=== PATIENT | male | born 1995 | race Caucasian/White ===

== ENCOUNTER 2017-05-24 14:51 | Emergency (ER) | payer OTHER ==
[2017-05-24 14:57] VITALS: BP 152/82; PULSE 83; RESP 18; TEMP 98.2; O2SAT 98
[2017-05-24] MEDS ORDERED: TDAP ADULT 0.5 ML INJ (BOOSTRIX) IM ONE (15:27)
--- NOTE | 2017-05-24 15:32 | EDPHY ---
H & P Time Seen by Provider: 05/24/17 15:13 HPI/ROS: CHIEF COMPLAINT: Laceration right thumb HISTORY OF PRESENT ILLNESS: 22-year-old male presents to the emergency department with a laceration to his right thumb. Patient was at work on Monday , 3 days ago and cut his right thumb on a soft. He is unsure of his last tetanus shot. Denies any other trauma or injury. He was concerned because his wound had not completely healed. ROS: Denies numbness or tingling in his fingers, retained foreign body. Past Medical/Surgical History: COPD, chronic bronchitis Social History: Single and lives in [place] Smoking Status: Current some day smoker Physical Exam: On examination patient has less than 2 cm laceration to the distal, palmar aspect of the right thumb overlying distal phalanx. No active bleeding noted. Laceration does not extend into the nail or DIP. No active bleeding noted. No palpable bony tenderness. The other fingers do not appear injured. Constitutional: Initial Vital Signs Temperature (C) 36.8 C 05/24/17 14:53 Heart Rate 83 05/24/17 14:53 Respiratory Rate 18 05/24/17 14:53 Blood Pressure 152/82 H 05/24/17 14:53 O2 Sat (%) 98 05/24/17 14:53 O2 Delivery Mode Room Air Allergies/Adverse Reactions: No Known Allergies Allergy (Unverified 05/24/17 14:53) Home Medications: Medication Instructions Recorded NK [No Known Home Meds] 05/24/17 MDM/Departure - MDM Medications Given: Discontinued Medications Diphtheria/Tetanus/Acell Pertussis (Boostrix) 0.5 ml IM .ONCE ONE Stop: 05/24/17 15:28 Last Admin: 05/24/17 15:41 Dose: 0.5 ml ED Course/Re-evaluation: 22-year-old male presents to the department right thumb injury. Sutures are not indicated. This was discussed the patient. The wound is 3-day-old. His tetanus was updated. There are no signs of infection. Do not the wound requires any repair or drug. Patient was given wound care precautions. - Depart Disposition: Home, Routine, Self-Care Clinical Impression: Laceration of right thumb Qualifiers: Encounter type: initial encounter Damage to nail status: without damage Foreign body presence: without foreign body Qualified Code(s): S61.011A - Laceration without foreign body of right thumb without damage to nail, initial encounter Condition: Good Instructions: Laceration (ED), Acute Wounds (ED) Additional Instructions: Return if you develop any signs of infection, increasing pain, fever, or if you feel worse in any way. You were given a Tetanus shot in the emergency department. Please document at home for your records. Referrals: Work Comp Ref/Restrictions [Outside] - As per Instructions
== END 2017-05-24 15:53 | disposition home or self-care (01) ==
DX: S61.011A Laceration without foreign body of right thumb without damage to nail, initial encounter (principal); W45.8XXA Other foreign body or object entering through skin, initial encounter; Y92.69 Other specified industrial and construction area as the place of occurrence of the external cause; J44.9 Chronic obstructive pulmonary disease, unspecified; Y93.89 Activity, other specified; Y99.0 Civilian activity done for income or pay; F17.200 Nicotine dependence, unspecified, uncomplicated; Z23 Encounter for immunization